=== PATIENT | female | born 1985 | race Hispanic/Latino ===

== ENCOUNTER 2017-06-29 17:57 | Inpatient (IN) | payer MEDICAID ==
[~2017-06-29] VITALS: Ht 154.9 cm; Wt 67.1 kg
[2017-07-06] MEDS ORDERED: LACTATED RINGERS 1000ML 1,000 ML IV PRN (18:05)
[2017-07-06 18:34] LABS: HEMATOCRIT 36.6 % (36-48); MEAN CORPUSCULAR HGB CONC 35.9 g/dL (32.0-36.0); MEAN CORPUSCULAR VOLUME 89.2 fL (79-99); NUCLEATED RED BLOOD CELLS 0.1 % (0.0-0.19); PLATELET COUNT (AUTO) 232 K/uL (130-400); RED BLOOD CELL COUNT(AUTO) 4.11 MIL/uL (4.00-5.50); RED CELL DISTRIBUTION WIDTH 14.7 % (11.0-15.5); WHITE BLOOD COUNT (AUTO) 9.1 K/uL (4.8-10.8)
[2017-07-06 18:52] LABS: APPEARANCE,URINE Clear (CLEAR); BILIRUBIN,URINE Negative (NEGATIVE); COLOR,URINE Yellow (YELLOW); GLUCOSE, URINE (UA) Negative (NEGATIVE); KETONES,URINE Negative (NEGATIVE); LEUKOCYTE ESTERASE ,URINE Negative (NEGATIVE); NITRATE,URINE Negative (NEGATIVE); OCCULT BLOOD,URINE Negative (NEGATIVE); PROTEIN,URINE Negative (NEGATIVE)
[2017-07-07] VITALS (9 sets, daily range): BP systolic 112–139; BP diastolic 70–86
[2017-07-07] MEDS ORDERED: OXYTOCIN 10 USP UNITS/ML 20 UNIT in LACTATED RINGERS 1000ML 1,000 ML IV SCH (03:00)
[2017-07-07] MEDS ORDERED: OXYTOCIN 10 USP UNITS/ML ONE ×2 (04:37→11:42)
[2017-07-07] MEDS ORDERED: LACTATED RINGERS 1000ML 1,000 ML IV ONE (04:37)
[2017-07-07] MEDS ORDERED: PROMETHAZINE HCL 25 MG/ML 1ML AMPULE IM SCH (09:15)
[2017-07-07] MEDS ORDERED: MEPERIDINE-PF 50 MG/ML SYG IVP SCH (09:15)
[2017-07-07] MEDS ORDERED: HYDROCODONE/ACETAMINOPHEN 5/325 MG TAB PO PRN (11:00)
[2017-07-07] MEDS ORDERED: WITCH HAZEL 1 PAD TP PRN (11:00)
[2017-07-07] MEDS ORDERED: ACETAMINOPHEN-CODEINE 300/30MG TAB PO PRN (11:00)
[2017-07-07] MEDS ORDERED: ACETAMINOPHEN 325 MG TAB PO PRN (11:00)
[2017-07-07] MEDS ORDERED: BENZOCAINE/LANOLIN/ALOE VERA 60 ML AEROSOL TP PRN (11:00)
[2017-07-07] MEDS ORDERED: DIPH,PERTUSS(ACELL),TET VAC/PF 0.5 ML VIAL IM PRN (11:00)
[2017-07-07] MEDS ORDERED: LANOLIN 30GM OINTMENT TP PRN (11:00)
[2017-07-07] MEDS: IBUPROFEN 800 MG TAB PO PRN ×2 (11:51→18:55)
[2017-07-07] MEDS: DOCUSATE SODIUM 100 MG CAP PO SCH (21:05)
[2017-07-08 03:45] VITALS: BP 109/67
[2017-07-08] MEDS: IBUPROFEN 800 MG TAB PO PRN ×2 (03:45→11:34)
[2017-07-08 05:33] LABS: HEMATOCRIT 31.3 % (36-48); MEAN CORPUSCULAR HEMOGLOBIN 32.3 pg (27.0-33.0); MEAN CORPUSCULAR HGB CONC 36.4 g/dL (32.0-36.0); MEAN CORPUSCULAR VOLUME 88.9 fL (79-99); NUCLEATED RED BLOOD CELLS 0.1 % (0.0-0.19); PLATELET COUNT (AUTO) 196 K/uL (130-400); RED BLOOD CELL COUNT(AUTO) 3.52 MIL/uL (4.00-5.50); RED CELL DISTRIBUTION WIDTH 14.8 % (11.0-15.5); WHITE BLOOD COUNT (AUTO) 10.5 K/uL (4.8-10.8)
[2017-07-08 07:00] VITALS: BP 119/78
[2017-07-08 08:19] LABS: HEPATITIS Bs ANTIGEN SCREEN P Negative (Negative)
[2017-07-08] MEDS: DOCUSATE SODIUM 100 MG CAP PO SCH (09:21)
[2017-07-08 11:00] VITALS: BP 114/74
== END 2017-07-08 13:10 | disposition home or self-care (01) | DRG 560 ==
LOC: LDH 07-06 17:48 → WSH 07-07 10:57
PROVIDERS: ADMIT Obstetrics & Gynecology; ATTEND Obstetrics & Gynecology
PROC: 10E0XZZ Delivery of Products of Conception, External Approach (ICD-10-PCS; principal; 2017-07-07)
PROC: 10907ZC Drainage of Amniotic Fluid, Therapeutic from Products of Conception, Via Natural or Artificial Opening (ICD-10-PCS; 2017-07-07)
DX: O80 Encounter for full-term uncomplicated delivery (principal); Z37.0 Single live birth; Z3A.39 39 weeks gestation of pregnancy
CPT/HCPCS: 36415; 81003; 85027; 86592; 86850; 86900; 86901; 87340; A4351; A4606; J2175; J2550; J2590; J7120